=== PATIENT | male | born 1985 | race American Indian/Alaskan Native ===

== ENCOUNTER 2018-01-01 17:32 | Emergency (ER) | payer SELFPAY ==
[2018-01-01 17:42] VITALS: BP 142/87
[2018-01-02] MEDS ORDERED: TYLENOL ONE (03:46)
== END 2018-01-01 22:50 | disposition left against medical advice (07) ==
LOC: ED 17:32
DX: R09.81 Nasal congestion (principal); Z53.21 Procedure and treatment not carried out due to patient leaving prior to being seen by health care provider